=== PATIENT | female | born 1950 ===

== ENCOUNTER 2018-08-17 15:12 | Outpatient (REF) | payer OTHER, SELFPAY ==
[2018-08-17 21:42] LABS: TSH (W/Ref FT4) 1.24 uIU/mL (0.358-3.74)
== END 2018-08-17 15:32 ==
LOC: NCHCN 15:12
PROVIDERS: PCP Family Medicine; Visit Provider Nurse Practitioner Family
DX: E03.9 Hypothyroidism, unspecified (principal)
CPT/HCPCS: 84443